=== PATIENT | female | born 1990 | race American Indian/Alaskan Native ===

== ENCOUNTER 2019-07-03 22:33 | Emergency (ER) | payer SELFPAY ==
[2019-07-04 00:55] LABS: Hematocrit 24.5 % (30.3-42.9); Hemoglobin 8.5 gm/dl (10.1-14.3); Mean Corpuscular HGB Conc 35 % (30-34); Mean Corpuscular Volume 78 fl (79-97); Platelet Count 420 K/mm3 (140-440); Red Blood Count 3.13 M/mm3 (3.65-5.03); Red Cell Distribution Width 17.7 % (13.2-15.2)
[2019-07-04 02:20] LABS: Hypochromasia 3+; Total Cells Counted 100
[2019-07-04 02:21] LABS: Target Cells 2+
[2019-07-04 02:22] LABS: Anisocytosis Few
[2019-07-04 02:23] LABS: Platelet Estimate Consistent w Auto
[2019-07-04 02:48] LABS: Alanine Aminotransferase 9 units/L (7-56); Albumin 4.2 g/dL (3.9-5); BUN/Creatinine Ratio 7; Blood Urea Nitrogen 5 mg/dL (7-17); Calcium 9.5 mg/dL (8.4-10.2); Hemolysis Index 13
--- NOTE | 2019-07-04 03:18 | Emergency Department Report ---
- General Chief complaint: Sickle Cell Crisis Stated complaint: SICKLE CELL/WEAKNESS/SLEEPINESS Time Seen by Provider: 07/04/19 03:13 Source: patient Mode of arrival: Ambulatory Limitations: No Limitations - History of Present Illness Initial comments: Chief complaint:" I came here for a checkup" HPI: Ms. Mejia is a 29-year-old female with hemoglobin SS sickle cell disease who presents with insomnia and generalized fatigue for the past 2 weeks. She desires for her blood work to be checked. She is followed at [facility]. She also desires refill of folic acid medication. Denies any pain. She is concerned for low hemoglobin. MD Complaint: generalized weakness -: Gradual, week(s) (2) Location: generalized Severity: mild Consistency: constant Improves with: none Worsens with: none Context: other (History of sickle cell disease hemoglobin SS) Associated Symptoms: denies other symptoms - Related Data Previous Rx's Medication Instructions Recorded Last Taken Type Folic Acid 1 mg PO DAILY 90 Days #90 tablet 07/04/19 Unknown Rx Allergies Allergy/AdvReac Type Severity Reaction Status Date / Time No Known Allergies Allergy Unverified 07/04/19 00:18 ED Review of Systems ROS: Stated complaint: SICKLE CELL/WEAKNESS/SLEEPINESS Other details as noted in HPI Comment: All other systems reviewed and negative Constitutional: denies: fever, malaise Respiratory: denies: cough Cardiovascular: denies: chest pain Gastrointestinal: denies: abdominal pain, nausea, vomiting ED Past Medical Hx - Past Medical History Previous Medical History?: Yes Hx Sickle Cell Disease: Yes - Surgical History Past Surgical History?: No - Social History Smoking Status: Current Every Day Smoker Substance Use Type: None - Medications Home Medications: Home Medications Medication Instructions Recorded Confirmed Last Taken Type Folic Acid 1 mg PO DAILY 90 Days #90 tablet 07/04/19 Unknown Rx ED Physical Exam - General Limitations: No Limitations General appearance: alert, in no apparent distress - Head Head exam: Present: atraumatic, normocephalic - Eye Eye exam: Present: scleral icterus. Absent: conjunctival injection, nystagmus - ENT ENT exam: Present: mucous membranes moist - Neck Neck exam: Present: normal inspection, full ROM - Respiratory Respiratory exam: Present: normal lung sounds bilaterally. Absent: respiratory distress, wheezes, rales, rhonchi - Cardiovascular Cardiovascular Exam: Present: regular rate, normal rhythm, normal heart sounds. Absent: rubs, gallop - GI/Abdominal GI/Abdominal exam: Present: soft, normal bowel sounds. Absent: distended, tenderness, guarding, rebound - Extremities Exam Extremities exam: Present: normal inspection - Back Exam Back exam: Present: normal inspection - Neurological Exam Neurological exam: Present: alert, oriented X3 - Psychiatric Psychiatric exam: Present: normal affect, normal mood - Skin Skin exam: Present: warm, dry, intact, normal color. Absent: rash ED Course Vital Signs 07/03/19 22:38 Temperature 98.6 F Pulse Rate 66 Respiratory 18 Rate Blood Pressure 114/69 O2 Sat by Pulse 99 Oximetry ED Medical Decision Making - Lab Data Result diagrams: 07/04/19 00:24 07/04/19 02:20 Laboratory Results - last 24 hr 07/04/19 07/04/19 07/04/19 00:24 00:24 02:20 WBC 9.2 RBC 3.13 L Hgb 8.5 L Hct 24.5 L MCV 78 L MCH 27 L MCHC 35 H RDW 17.7 H Plt Count 420 Add Manual Diff Complete Total Counted 100 Seg Neuts % (Manual) 51.0 Band Neutrophils % 0 Lymphocytes % (Manual) 33.0 Reactive Lymphs % (Man) 0 Monocytes % (Manual) 9.0 H Eosinophils % (Manual) 6.0 H Basophils % (Manual) 1.0 Metamyelocytes % 0 Myelocytes % 0 Promyelocytes % 0 Blast Cells % 0 Nucleated RBC % Not Reportable Seg Neutrophils # Man 4.7 Band Neutrophils # 0.0 Lymphocytes # (Manual) 3.0 Abs React Lymphs (Man) 0.0 Monocytes # (Manual) 0.8 Eosinophils # (Manual) 0.6 H Basophils # (Manual) 0.1 Metamyelocytes # 0.0 Myelocytes # 0.0 Promyelocytes # 0.0 Blast Cells # 0.0 WBC Morphology Not Reportable Hypersegmented Neuts Not Reportable Hyposegmented Neuts Not Reportable Hypogranular Neuts Not Reportable Smudge Cells Not Reportable Toxic Granulation Not Reportable Toxic Vacuolation Not Reportable Dohle Bodies Not Reportable Pelger-Huet Anomaly Not Reportable Odalys Rods Not Reportable Platelet Estimate Consistent w auto Clumped Platelets Not Reportable Plt Clumps, EDTA Not Reportable Large Platelets Not Reportable Giant Platelets Not Reportable Platelet Satelliting Not Reportable Plt Morphology Comment Not Reportable RBC Morphology Not Reportable Dimorphic RBCs Not Reportable Polychromasia Not Reportable Hypochromasia 3+ Poikilocytosis Not Reportable Anisocytosis Few Microcytosis Not Reportable Macrocytosis Not Reportable Spherocytes Not Reportable Pappenheimer Bodies Not Reportable Sickle Cells Not Reportable Target Cells 2+ Tear Drop Cells Not Reportable Ovalocytes Not Reportable Helmet Cells Not Reportable Nunez-Wiley [place] Bodies Not Reportable Vian Rings Not Reportable Aayush Cells Not Reportable Bite Cells Not Reportable Crenated Cell Not Reportable Elliptocytes Not Reportable Acanthocytes (Spur) Not Reportable Rouleaux Not Reportable Hemoglobin C Crystals Not Reportable Schistocytes Not Reportable Malaria parasites Not Reportable Percent Retic 2.30 Garcia Bodies Not Reportable Hem Pathologist Commnt No Sodium 141 Potassium 4.2 Chloride 105.0 Carbon Dioxide 25 Anion Gap 15 BUN 5 L Creatinine 0.7 Estimated GFR > 60 BUN/Creatinine Ratio 7 Glucose 79 Calcium 9.5 Total Bilirubin 0.70 AST 17 ALT 9 Alkaline Phosphatase 61 Total Protein 7.5 Albumin 4.2 Albumin/Globulin Ratio 1.3 HCG, Qual Negative - Medical Decision Making Ms. Mejia presents with generalized fatigue for 2 weeks. Hemoglobin 8.5. No pain at this time. Patient appears well. Prescription for folic acid provided. Critical care attestation.: If time is entered above; I have spent that time in minutes in the direct care of this critically ill patient, excluding procedure time. ED Disposition Clinical Impression: Sickle cell disease Disposition: DC-01 TO HOME OR SELFCARE Is pt being admited?: No Does the pt Need Aspirin: No Condition: Stable Prescriptions: Folic Acid 1 mg PO DAILY 90 Days #90 tablet Referrals: MEGHA LONG MD [Staff Physician] - 3-5 Days
[2019-07-04 03:31] VITALS: BP 116/78
== END 2019-07-04 03:40 | disposition home or self-care (01) ==
LOC: ED 22:33
DX: F17.200 Nicotine dependence, unspecified, uncomplicated (principal)
CPT/HCPCS: 36415; 80053; 84703; 85007; 85025; 85045; 99283

== ENCOUNTER 2019-11-17 20:12 | Emergency (ER) | payer SELFPAY ==
--- NOTE | 2019-11-17 20:51 | Event Note ---
ED Screening Note Date of service: 11/17/19 Time: 20:50 ED Screening Note: 29-year-old female with a history of sickle cell presents ED complaining of chest pain This initial assessment/diagnostic orders/clinical plan/treatment(s) is/are subject to change based on patients health status, clinical progression and re- assessment by fellow clinical providers in the ED. Further treatment and workup at subsequent clinical providers discretion. Patient/guardian urged not to elope from the ED as their condition may be serious if not clinically assessed and managed. Initial orders include: Labs ordered. Chest x-ray Main side eval
[2019-11-17 22:07] LABS: BUN/Creatinine Ratio 7; Blood Urea Nitrogen 4 mg/dL (7-17); Calcium 8.8 mg/dL (8.4-10.2); Hemolysis Index 0
[2019-11-17 22:33] LABS: Hematocrit 23.8 % (30.3-42.9); Hemoglobin 7.8 gm/dl (10.1-14.3); Mean Corpuscular HGB Conc 33 % (30-34); Mean Corpuscular Volume 71 fl (79-97); Platelet Count 491 K/mm3 (140-440); Red Blood Count 3.36 M/mm3 (3.65-5.03)
--- NOTE | 2019-11-18 01:22 | Emergency Department Report ---
ED General Adult HPI - General Chief complaint: Sickle Cell Crisis Stated complaint: SICKLE CELL PAIN Time Seen by Provider: 11/18/19 01:11 Source: patient Mode of arrival: Ambulatory Limitations: No Limitations - History of Present Illness Initial comments: Patient is 29 years old female with history of sickle cell disease. Patient presented to the ER initially stated that she is having chest pain but when patient moved to main ED she denied chest pain. She stated that she just here to check her hemoglobin level and to get a folic acid. Patient stated that she is out of her folic acid for a week now. Patient stated that she followed by [facility]. Patient denied any fever, chills, shortness of breath, chest pain, nausea or vomiting. - Related Data Previous Rx's Medication Instructions Recorded Last Taken Type Folic Acid 1 mg PO DAILY 90 Days #90 tablet 07/04/19 Unknown Rx Allergies Allergy/AdvReac Type Severity Reaction Status Date / Time No Known Allergies Allergy Unverified 07/04/19 00:18 ED Review of Systems ROS: Stated complaint: SICKLE CELL PAIN Other details as noted in HPI Comment: All other systems reviewed and negative Constitutional: denies: chills, fever Respiratory: denies: cough, shortness of breath, SOB with exertion Cardiovascular: denies: chest pain, palpitations Gastrointestinal: denies: abdominal pain, nausea, vomiting Musculoskeletal: denies: back pain ED Past Medical Hx - Past Medical History Previous Medical History?: Yes Hx Sickle Cell Disease: Yes - Social History Smoking Status: Never Smoker Substance Use Type: None - Medications Home Medications: Home Medications Medication Instructions Recorded Confirmed Last Taken Type Folic Acid 1 mg PO DAILY 90 Days #90 tablet 07/04/19 Unknown Rx ED Physical Exam - General Limitations: No Limitations General appearance: alert, in no apparent distress - Head Head exam: Present: atraumatic, normocephalic, normal inspection - Eye Eye exam: Present: normal appearance - ENT ENT exam: Present: normal exam, normal orophraynx, mucous membranes moist - Neck Neck exam: Present: normal inspection, full ROM. Absent: tenderness, meningismus, lymphadenopathy, thyromegaly - Respiratory Respiratory exam: Present: normal lung sounds bilaterally - Cardiovascular Cardiovascular Exam: Present: regular rate, normal rhythm, normal heart sounds - GI/Abdominal GI/Abdominal exam: Present: soft. Absent: distended, tenderness, guarding, rebound, rigid - Extremities Exam Extremities exam: Present: normal inspection, full ROM, normal capillary refill. Absent: pedal edema, calf tenderness - Back Exam Back exam: Present: normal inspection, full ROM. Absent: CVA tenderness (R), CVA tenderness (L) - Neurological Exam Neurological exam: Present: alert, oriented X3, CN II-XII intact - Psychiatric Psychiatric exam: Present: normal mood - Skin Skin exam: Present: warm, intact, normal color ED Course Vital Signs 11/17/19 20:23 Temperature 98.2 F Pulse Rate 81 Respiratory 18 Rate Blood Pressure 100/67 O2 Sat by Pulse 100 Oximetry ED Medical Decision Making - Lab Data Result diagrams: 11/17/19 21:18 11/17/19 21:18 - Medical Decision Making Patient is 29 years old female with history of sickle cell disease. Patient presented to the ER initially stated that she is having chest pain but when patient moved to main ED she denied chest pain. She stated that she just here to check her hemoglobin level and to get a folic acid. Patient stated that she is out of her folic acid for a week now. Patient stated that she followed by [facility]. Patient denied any fever, chills, shortness of breath, chest pain, nausea or vomiting. Patient remained stable with no evidence of sickle cell crisis. Reticulocyte count is 2.1%. Patient informed about her hemoglobin of 7.8. Patient given prescription for folic acid 1 mg daily and strongly advised to follow-up with her [facility] for further management. Patient also advised to return to the ER if she develop any new symptoms. Critical care attestation.: If time is entered above; I have spent that time in minutes in the direct care of this critically ill patient, excluding procedure time. ED Disposition Clinical Impression: Sickle cell anemia Disposition: DC-01 TO HOME OR SELFCARE Is pt being admited?: No Condition: Stable Instructions: Anemia (ED) Referrals: PRIMARY CARE, [Primary Care Provider] - 3-5 Days
[2019-11-18 01:59] LABS: Band Neutrophils # (Manual) 0.1 K/mm3; Hypochromasia 1+; Target Cells 2+; Total Cells Counted 100
[2019-11-18 02:00] LABS: Anisocytosis Few
[2019-11-18 02:01] LABS: Large Platelets Rare; Platelet Estimate Cons
[2019-11-18 02:14] VITALS: BP 119/70
== END 2019-11-18 02:14 | disposition home or self-care (01) ==
LOC: ED 20:12
DX: D57.1 Sickle-cell disease without crisis (principal)
CPT/HCPCS: 36415; 80048; 85007; 85025; 85045; 93005; 99283